=== PATIENT | male | born 1975 ===

== ENCOUNTER 2025-07-03 06:08 | Day surgery (SDC) | payer OTHER, SELFPAY ==
[2025-07-03] VITALS (11 sets, daily range): BP systolic 87–135; BP diastolic 56–90; BMI 23.6
== END 2025-07-03 15:36 | disposition home or self-care (01) ==
LOC: SDS 06:08
PROVIDERS: ATTENDING PHYSICIAN Internal Medicine Gastroenterology
DX: K22.89 Other specified disease of esophagus (principal); K86.9 Disease of pancreas, unspecified; R93.5 Abnormal findings on diagnostic imaging of other abdominal regions, including retroperitoneum
CPT/HCPCS: 43259